=== PATIENT | female | born 1935 | race Caucasian/White ===

== ENCOUNTER → 2019-10-03 13:15 | Outpatient (CLI) | payer MEDICARE, SELFPAY ==
--- NOTE | ~2019-10-03 | XR_ITS ---
XR chest 2V 10/03/2019 14:31 Indication: Chronic cough Procedure: 2 view chest Comparison: No prior studies for comparison. Findings: Cardiomegaly. There is atherosclerosis. There is a coronary artery stent. There is an impla ntable device overlying the left chest. No focal air space disease, pulmonary edema, pleural effusion or suspected pneumothorax. Impression: 1: No acute cardiopulmonary disease. Reviewed, dictated and finalized at location B. Impression: 1: No acute cardiopulmonary disease.
== END ==
PROVIDERS: PCP Family Medicine; Visit Provider Family Medicine
DX: R05 Cough (principal)
CPT/HCPCS: 71046

== ENCOUNTER 2021-04-14 11:14 | Emergency (ER) | payer MEDICARE, SELFPAY ==
--- NOTE | ~2021-04-14 | XR_ITS ---
EXAMINATION: [id number] DATE: 04/14/2021 12:06 INDICATION: Right chest injury and pain. Fall 2 weeks ago. TECHNIQUE: A frontal view of the chest and 2 views on 3 radiographs of the right ribs were obtained. COMPARISON: Chest 2 views 10/03/2019 FINDINGS: There is no pneumonia, pleural effusion, or pneumothorax. Cardiomegaly is noted. There is a n implant in left anterior chest wall. There are fractures of right seventh and eighth ribs. There ar e changes of posterior fusion procedure at L5-S1. IMPRESSION: 1. Fractures of right seventh and eighth ribs. 2. Cardiomegaly. Reviewed, dictated and finalized at location A. [employer]
[2021-04-14 11:22] VITALS: PULSE 56; RESP 20; TEMP 36.3; O2SAT 96
--- NOTE | 2021-04-14 11:43 | ED.UPPEXIN ---
HPI - Extremity Injury (Upper) General Chief Complaint: Extremity Injury, Upper Stated Complaint: Fell Injury/ Right Side/Arm Injury Time Seen by Provider: 04/14/21 11:44 Source: patient and RN notes reviewed Mode of arrival: ambulatory Limitations: no limitations History of Present Illness HPI narrative: 86-year-old female presents with concern for fall and right lateral chest pain when moving her right arm. She reports 2 weeks ago she fell and had right arm pain, right lateral chest pain. Reports the right arm pain has resolved, however whenever she moves her right arm she continues to have a burning sensation and her right lateral chest. She reports bruising in that area as well. She denies any other pain or injury. She denies shortness of breath, cough. Related Data Home Medications Medication Instructions Recorded Confirmed aspirin 81 mg tablet,delayed 81 mg PO DAILY 07/03/20 04/14/21 release atorvastatin 80 mg tablet 80 mg PO DAILY 07/03/20 04/14/21 cetirizine 10 mg tablet 10 mg PO DAILY PRN 07/03/20 04/14/21 docusate sodium 100 mg capsule 100 mg PO BID 07/03/20 04/14/21 furosemide 20 mg tablet 20 mg PO QAM 07/03/20 04/14/21 meloxicam 15 mg tablet 15 mg PO DAILY 07/03/20 04/14/21 metformin 500 mg tablet 500 mg PO DAILY 07/03/20 04/14/21 metoprolol succinate 100 mg 100 mg PO BID 07/03/20 04/14/21 tablet,extended release 24 hr nitroglycerin 0.4 mg sublingual 0.4 mg SUBLINGUAL Q5M PRN 07/03/20 04/14/21 tablet sertraline 50 mg tablet 50 mg PO DAILY 07/03/20 04/14/21 Allergies Allergy/AdvReac Type Severity Reaction Status Date / Time tetanus and diphtheria Allergy Unknown unknown Verified 04/14/21 11:33 toxoids Review of Systems Review of Systems: CONSTITUTIONAL: Denies malaise, chills, sweats, or fever. CARDIOVASCULAR: Denies chest pain, palpitations, or edema. RESPIRATORY: Denies cough or dyspnea. SKIN: Denies rash or itching, redness, swelling. MUSCULOSKELETAL: Reports right lateral chest pain and bruising NEUROLOGIC: Denies numbness, weakness All systems reviewed & are unremarkable except as noted in HPI and below PMFSH Family History Family History Mother Diabetes mellitus Depression Sibling Heart disease Alcoholism Other Alcoholism Cancer Diabetes mellitus Hypertension Depression Grandparent Hypertension Diabetes mellitus Grandparent Alcoholism Cancer Diabetes mellitus Hypertension Social History Social History Smoking status: Never smoker Alcohol intake: never Substance use: never Substance use type: does not use Comments At time of signature, agree with nursing past medical, surgical, social and family history. There is no relevant family history pertinent to the presenting complaint Exam Narrative: GENERAL: Well-appearing, well-nourished, and in no acute distress. HEAD: Normocephalic, atraumatic. EYES: PERRLA, sclera clear, ENT: Mucous membranes moist. NECK: Supple. CHEST: No respiratory distress. Clear to auscultation. No bony deformities, no asymmetry. Speaks in full sentences. HEART: Regular rate and rhythm. No murmur heard. Normal peripheral pulses. EXTREMITIES: Grossly range of motion. No edema. Normal strength and sensation. SKIN: Warm, dry, no visible rash. Yellow-greenish bruising noted to the lateral chest near ribs 7 and 8, tenderness to that area NEURO: Alert and oriented x3. PSYCH: Normal mood and affect Course Course Emergency Course: Patient is aware of diagnosis, understands and agrees to treatment plan. Anticipatory guidance given. Patient agrees to follow-up as directed and is aware of reasons to seek care at the emergency department. Portions of this record may have been created with voice recognition software Level of Care: Express Care Visit Vital Signs Vital signs: Vital Signs Temperature 97.3 F L 04/14/21
[2021-04-14 12:00] VITALS: BP 124/64
== END 2021-04-14 12:21 | disposition home or self-care (01) ==
PROVIDERS: Emergency Provider Nurse Practitioner; PCP Family Medicine
DX: R07.89 Other chest pain (principal); S22.41XA Multiple fractures of ribs, right side, initial encounter for closed fracture; W19.XXXA Unspecified fall, initial encounter; Z79.82 Long term (current) use of aspirin; E78.00 Pure hypercholesterolemia, unspecified; I10 Essential (primary) hypertension; E11.9 Type 2 diabetes mellitus without complications; Z85.3 Personal history of malignant neoplasm of breast; Z95.5 Presence of coronary angioplasty implant and graft; I50.9 Heart failure, unspecified
CPT/HCPCS: 71101; 99213; G0463